=== PATIENT | male | born 2000 | race Caucasian/White ===

== ENCOUNTER 2019-08-12 03:44 | Emergency (ER) | payer SELFPAY ==
[2019-08-12 04:00] VITALS: BP 134/78; PULSE 85; RESP 18; TEMP 36.4; O2SAT 100
[2019-08-12 04:18] LABS: Basophils Absolute Auto 0.1 K/mm3 (0.0-0.1); Eosinophils Absolute Auto 0.3 K/mm3 (0-0.3); Eosinophils Percent Auto 3.5 % (0-4.4); Hematocrit 46.1 % (42.0-52.0); Hemoglobin 16.3 g/dL (14.0-18.0); Immature Granulocyte Absolute 0.02 K/mm3 (0.00-0.031); Immature Granulocyte Percent A 0.3 % (0-0.5); Lymphocytes Absolute Auto 2.36 K/mm3 (0.9-3.2); Lymphocytes Percent Auto 33.5 % (18.3-44.2); Mean Corpuscular HGB Conc 35.4 g/dl (32-36); Mean Corpuscular Hemoglobin 30.7 pg (26-34); Mean Corpuscular Volume 86.8 fl (80-100); Mean Platelet Volume 10.4 fl (7.4-10.4); Monocytes Absolute Auto 0.5 K/mm3 (0.1-0.6); Monocytes Percent Auto 7.2 % (2.6-8.5); Neutrophils Absolute Auto 3.8 K/mm3 (1.3-6.7); Neutrophils Percent Auto 54.5 % (45.5-73.1); Platelet Count Result 288 k/mm3 (150-375); Red Blood Count 5.31 M/mm3 (4.6-6.20); Red Cell Distribution Width 12.6 % (11.5-14.5); White Blood Count 7.1 K/mm3 (4.5-10.0)
[2019-08-12 04:20] LABS: Add Urine Microscopic? NO; Appearance Urine Clear (Clear); Bilirubin Urine Negative (Negative); Blood Urine Negative (Negative); Color Urine Straw (Yellow); Glucose Urine UA Negative (Negative); Ketones Urine Negative (Negative); Leukocyte Esterase Ur Negative LEU/UL (Negative); Nitrate Urine Negative (Negative); Protein Urine Negative (Negative); Specific Grav Ur 1.006 (1.001-1.035); Urobilinogen Urine Negative mg/dL (<2.0)
[2019-08-12 04:30] LABS: Blood Urea Nitrogen 10 mg/dL (9-20); Calcium 9.8 mg/dL (8.4-10.2); Carbon Dioxide 25 mmol/L (22-30); Chloride 106 mmol/L (98-107); Estimated CRCL calculation 149 ml/min; Estimated Glomerular Filt Rate > 60; Ethanol 155 mg/dL (<10); Glucose 108 mg/dL (75-110); Potassium 3.5 mmol/L (3.4-5.0); Sodium 144 mmol/L (137-145)
[2019-08-12 04:36] LABS: Amphetamine Screen Urine Negative (Negative); Barbiturate Screen Urine Negative (Negative); Benzodiazepines Screen Urine Negative (Negative); Cannabinoid Screen Urine Positive (Negative); Cocaine Screen Urine Negative (Negative); Methadone Screen Urine Negative (Negative); Opiate Screen Urine Negative (Negative); Phencyclidine Screen Urine Negative (Negative)
--- NOTE | 2019-08-12 05:19 | ED.PSYCH ---
HPI - Psych General Chief Complaint: Psychiatric Symptoms <Arnaldo Rodrigez MD - Last Filed: 08/12/19 05:25> Stated Complaint: SI <Arnaldo Rodrigez MD - Last Filed: 08/12/19 05:25> Time Seen by Provider: 08/12/19 03:45 <Arnaldo Rodrigez MD - Last Filed: 08/12/19 05:25> History of Present Illness HPI Narrative: Patient is a 18-year-old male who presents the ER with suicidal ideation and depression. Has history of suicide attempt when he was in high school when he attempted to hang himself with a belt. Denies use with friends when he started having panic attack and became emotional. Reports that he has been having increasing thoughts of harming himself over the last month. No new stressors. A friend who is with him reports that the patient was talking about how his aunt had committed suicide a couple years ago by hanging himself and then while they were driving to the ER patient continued to listen to a song about taking his own life. Patient has no active plan at this time. Patient reports he did have some alcohol tonight. Not currently medicated. <Arnaldo Rodrigez MD - Last Filed: 08/12/19 05:25> Related Data Home Medications: Home Medications Medication Instructions Recorded Confirmed No Home Medications 08/12/19 08/12/19 <Arnaldo Rodrigez MD - Last Filed: 08/12/19 05:25> Allergies/Adverse Reactions: Allergies Allergy/AdvReac Type Severity Reaction Status Date / Time No Known Allergies Allergy Verified 08/12/19 04:06 <Arnaldo Rodrigez MD - Last Filed: 08/12/19 05:25> Review of Systems Review of Systems: All systems reviewed & are unremarkable except as noted in HPI and below <Arnaldo Rodrigez MD - Last Filed: 08/12/19 05:25> Constitutional: Constitutional: Denies chills, Denies fever(s) and Denies weakness <Arnaldo Rodrigez MD - Last Filed: 08/12/19 05:25> Respiratory: Respiratory: Denies cough and Denies dyspnea <Arnaldo Rodrigez MD - Last Filed: 08/12/19 05:25> Psychiatric: Psychiatric: Reports anxiety, Reports depression, Denies homicidal ideation and Reports suicidal ideation <Arnaldo Rodrigez MD - Last Filed: 08/12/19 05:25> PMFSH Past Medical History Medical History: Medical History (Updated 08/12/19 @ 11:40 by Raffy Christensen DO) Depression <Arnaldo Rodrigez MD - Last Filed: 08/12/19 05:25> Surgical History Surgical History: Surgical History (Updated 08/12/19 @ 05:24 by Arnaldo Rodrigez MD) H/O hernia repair History of tonsillectomy and adenoidectomy <Arnaldo Rodrigez MD - Last Filed: 08/12/19 05:25> Social History Social History: Social History (Updated 08/12/19 @ 05:24 by Arnaldo Rodrigez MD) Alcohol intake: current Substance use type: marijuana <Arnaldo Rodrigez MD - Last Filed: 08/12/19 05:25> Exam Narrative: Exam Narrative: GENERAL: Well-appearing, well-nourished, and in no acute distress. HEAD: Normocephalic, atraumatic. ENT: Mucous membranes moist. CHEST: Clear to auscultation. No respiratory distress. HEART: Regular rate and rhythm. Normal peripheral pulses. ABDOMEN: Soft, nontender, nondistended. EXTREMITIES: Normal range of motion. No edema. SKIN: Warm, dry, no rash. NEURO: Alert and oriented x3. PSYCH: Slight intoxication with suicidal thoughts but no active plan. <Arnaldo Rodrigez MD - Last Filed: 08/12/19 05:25> Course Course Emergency Course: Care turned over to myself by Dr. Rodrigez at shift change. Patient seen and evaluated by myself. Patient currently denying any suicidal or homicidal ideation Patient evaluated by [facility] crisis risk control field representative. This time patient denying any current suicidal ideation. Is felt the patient may be discharged with a safety contract. Did discuss with the patient is remained his present as well as feels complete the patient returning home Again when discussed with the patient. Patient currently denying any suicidal
[2019-08-12 06:27] VITALS: BP 108/79; PULSE 67; RESP 12; O2SAT 98
[2019-08-12 07:44] LABS: Ethanol 91 mg/dL (<10)
--- NOTE | 2019-08-12 08:58 | PC.NURSE ---
Spoke with Jolanta from crisis for assessment request at this time. Client Liaison request for nancy to be contacted before assessment. Nancy contacted at this time also, nancy denied pt due to age and self pay. Jolanta contacted again at this time. NO eta given.
--- NOTE | 2019-08-12 10:07 | PC.NURSE ---
Jolanta from [place] arrived at this time.
[2019-08-12 11:49] VITALS: BP 124/84; PULSE 82; RESP 18; O2SAT 99
== END 2019-08-12 11:52 | disposition home or self-care (01) ==
PROVIDERS: Emergency Medicine; Emergency Provider Emergency Medicine
DX: F10.129 Alcohol abuse with intoxication, unspecified (principal); Y90.6 Blood alcohol level of 120-199 mg/100 ml; F41.9 Anxiety disorder, unspecified; F32.9 Major depressive disorder, single episode, unspecified
CPT/HCPCS: 36415; 80048; 80307; 81003; 84443; 85025; 99284